=== PATIENT | female | born 1995 | race Caucasian/White ===

== ENCOUNTER 2017-02-23 14:20 | Emergency (ER) | payer OTHER ==
[2017-02-23] MEDS ORDERED: KETOROLAC 60 MG/2 ML VIAL ONE (16:12)
[2017-02-23] MEDS ORDERED: diphenhydrAMINE 25 MG CAPSULE PO ONE (16:12)
[2017-02-23] MEDS ORDERED: ONDANSETRON ODT 4 MG TABLET ONE (16:12)
[2017-02-23] MEDS: ONDANSETRON ODT 4 MG TABLET TL STA (16:14)
[2017-02-23] MEDS: diphenhydrAMINE 25 MG CAPSULE PO STA (16:14)
[2017-02-23] MEDS: KETOROLAC 60 MG/2 ML VIAL IM STA (16:15)
[2017-02-23 17:12] VITALS: BP 98/76
--- NOTE | 2017-02-23 17:25 | ED Physician Documentation ---
History of Present Illness - Stated complaint Stated Complaint: MIGRAINE - Chief complaint Chief Complaint: Neuro - Additonal information Additional information: hx from pt 21 f not hx migraines inc freq recently - generalized throbbing photophobia phonophobia similar to priro LAINEZ but more freq worse in AM joan in PM no CO no trauma no fever no neck stiffness no numbness or weakness + NV her sclera get injected Review of Systems Constitutional: denies: Fever Eyes: reports: Photophobia GI: reports: Nausea, Vomiting Neurologic: reports: Headache PD PAST MEDICAL HISTORY - Past Medical History Past Medical History: Yes Neuro: Headache/migraine GI: GERD : Other - Past Surgical History Past Surgical History: No - Present Medications Home Medications: Ambulatory Orders Medication Instructions Recorded Confirmed Esomeprazole Magnesium [Nexium] 20 mg PO DAILY 07/17/16 07/17/16 Nitrofurantoin Monohyd/M-Cryst 100 mg PO DAILY PRN 07/17/16 07/17/16 [Macrobid 100 mg Capsule] Pnv95/Ferrous Fumarate/FA 1 tab PO DAILY 07/17/16 07/17/16 [ Vitamins Tablet] Butalbital/Aspirin/Caffeine 1 each PO Q6H PRN #10 capsule 02/23/17 [Fiorinal 50-325-40 mg Capsule] - Allergies Allergies/Adverse Reactions: Allergies Allergy/AdvReac Type Severity Reaction Status Date / Time No Known Drug Allergies Allergy Verified 02/23/17 14:29 - Social History Does the pt smoke?: No Smoking Status: Never smoker Does the pt drink ETOH?: No Does the pt have substance abuse?: No - Immunizations Immunizations are current?: Yes - POLST Patient has POLST: No PD ED PE NORMAL - Vitals Vital signs reviewed: Yes - HEENT HEENT: PERRL, EOMI, Other (no papilledema) - Cardiac Cardiac: RRR - Respiratory Respiratory: No respiratory distress - Neuro Neuro: Alert and oriented X 3, 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 2-12 intact, No motor deficit, No sensory deficit - Psych Psych: Normal mood Results - Vitals Vitals: Vital Signs - 24 hr 02/23/17 02/23/17 14:24 17:10 Temperature 36.8 C 36.8 C Heart Rate 89 86 Respiratory 18 17 Rate Blood Pressure 135/83 H 98/76 O2 Saturation 99 100 Oxygen O2 Source Room air PD MEDICAL DECISION MAKING - ED course ED course: marcelo LAINEZ nl neuro exam no indication for CT or LP better with toradol zofran benadyrl will dc to up neuro and trial of fioricet Departure - Departure Disposition: 01 Home, Self Care Clinical Impression: Migraine Qualifiers: Migraine type: other Status migrainosus presence: without status migrainosus Intractability: not intractable Qualified Code(s): G43.809 - Other migraine, not intractable, without status migrainosus Condition: Good Instructions: ED Headache Migraine Follow-Up: [facility] [Provider Group] Prescriptions: Butalbital/Aspirin/Caffeine [Fiorinal 50-325-40 mg Capsule] 1 each PO Q6H PRN # 10 capsule PRN Reason: Migraine Comments: Please follow up with your PMD at [place] and also the neurologist Dr Natarajan in [facility] Forms: Activity restrictions
== END 2017-02-23 17:51 | disposition home or self-care (01) ==
LOC: ED 14:20
DX: G43.909 Migraine, unspecified, not intractable, without status migrainosus (principal); K21.9 Gastro-esophageal reflux disease without esophagitis
CPT/HCPCS: 96372; 99283; 99284